=== PATIENT | female | born 1965 | race Two or more races ===

== ENCOUNTER → 2016-08-13 | Outpatient (CLI) | payer OTHER ==
[~2016-08-13] MED LIST: DAIRY DIGES3000 UNI1 PO; DOXYCYCLINE HY100 M3 PO; DOXYCYCLINE PO; LANSOPRAZOLE30 M2 PO; NO MEDICATIONS; ULTRAM PO
--- NOTE | ~2016-08-13 | CT2 ---
[facility] A Service of [facility] RADIOLOGY TEXT RESULTS PATIENT: BASHIR BARBER [facility] 65 UNIT #: [id number] AGE: [address]: SHARI PALOMARES APRN SEX: F ORDER DR: [id number] [facility] [address] [place], [place] [address] [id number] O MR#: [id number] Acc #: [id number] NAME: BASHIR BARBER : 1965 SEX: F STUDY DATE/TIME: 08/13/2016 13:05 UNIT: [facility] ROOM: STUDY DESCRIPTION: CT Abd and Pelv W Cont Attending Physician: Shari Palomares Aprn Referring Physician: Shari Palomares Aprn Ordering Physician: Shari Palomares Aprn Primary Care Physician: Freeman Valdivia M.D. MEDICAL IMAGING REPORT This report is preliminary unless electronic signature is present EXAM CT abdomen and pelvis with contrast. INDICATIONS Mid abdominal pain and left lower quadrant abdominal pain for the past month. PROCEDURE Contrast-enhanced CT of the abdomen and pelvis. This CT exam was performed with one or more of the following radiation dose reduction techniques: automatic exposure control, adjustment of mA and/or kV according to patient size, and iterative reconstruction. COMPARISON 10/12/2012 FINDINGS ABDOMEN WITH CONTRAST: Included lung bases are clear. The liver, spleen, kidneys, adrenal glands, pancreas, and gallbladder are unremarkable. Bowel loops are nondilated. Appendix is nondilated. A moderate amount of colonic stool. PELVIS WITH CONTRAST: No pelvic mass or fluid. No aggressive appearing bone lesion. IMPRESSION 1. No acute findings. 2. Moderate amount of colonic stool. Dictated by... Tony Kern M.D. [facility] A Service [facility] RADIOLOGY TEXT RESULTS PATIENT: BASHIR BARBER LOCATION: [facility] : 65 UNIT #: [id number] AGE: [address]: SHARI PALOMARES APRN SEX: F ORDER DR: THIS IS AN ELECTRONICALLY VERIFIED REPORT Tony Kern M.D. at 08/16/2016 8:24 AM Lino TD: 08/13/2016 17:42 JOB #: [id number] MEDICAL IMAGING REPORT Page 1 of 1 COPY
== END | disposition home or self-care (01) ==
LOC: CCAT 11:16
DX: R10.32 Left lower quadrant pain (principal)
CPT/HCPCS: 74177; Q9967